=== PATIENT | male | born 1995 | race Caucasian/White ===

== ENCOUNTER 2024-08-22 18:29 | Emergency (ER) | payer OTHER ==
[~2024-08-22] VITALS: Ht 177.8 cm; Wt 56.7 kg
[~2024-08-22 18:29] MED LIST: BENADRYL25 MG PO; CEPH500 PO; Cleocin HCl150 MG PO; Nix Lice Treatm59 ML TOP; SULTRIDS PO; Veetids 500500 MG PO
[2024-08-22 18:49] VITALS: BP 130/84
[2024-08-22] MEDS ORDERED: Fluorescein Sod 1MG Opth Strips LEFTEYE ONE (20:35)
[2024-08-22] MEDS ORDERED: Tetracaine HCl/Pf 0.5% Opth Soln 4 ml LEFTEYE ONE (20:40)
[2024-08-22] MEDS ORDERED: Ketorolac Tromethamine 15mg Vial IM ONE (20:45)
[2024-08-22] MEDS ORDERED: OCUFLOX510 LEFTEYE (21:20)
[2024-08-22] MEDS ORDERED: Erythromycin 0.5% Opth Oint 1 gm LEFTEYE ONE (21:20)
[2024-08-22] MEDS ORDERED: Ofloxacin 0.3% Opth Soln 5 ML LEFTEYE ONE (21:20)
[2024-08-22] MEDS ORDERED: ERYT1OIN LEFTEYE (21:20)
== END 2024-08-22 21:29 | disposition home or self-care (01) ==
LOC: ER 18:29
DX: T15.02XA Foreign body in cornea, left eye, initial encounter (principal); F17.200 Nicotine dependence, unspecified, uncomplicated; W44.E9XA Other non-magnetic metal objects entering into or through a natural orifice, initial encounter; Z79.899 Other long term (current) drug therapy
CPT/HCPCS: 65205; 65435; 99283-25; A9270